=== PATIENT | female | born 1965 | race Caucasian/White ===

== ENCOUNTER 2022-04-04 18:40 | Emergency (ER) | payer SELFPAY ==
[~2022-04-04] VITALS: Ht 165.1 cm; Wt 62.0 kg
[2022-04-04 18:45] VITALS: BP 169/90
[2022-04-04] MEDS ORDERED: IBUPROFEN 600MG TABLET PO ONE (20:45)
== END 2022-04-04 23:49 | disposition home or self-care (01) ==
LOC: ER 18:40
DX: M25.561 Pain in right knee (principal); M25.562 Pain in left knee; M25.552 Pain in left hip; V03.19XA Pedestrian with other conveyance injured in collision with car, pick-up truck or van in traffic accident, initial encounter; Y93.89 Activity, other specified; Y92.89 Other specified places as the place of occurrence of the external cause; Y99.8 Other external cause status
CPT/HCPCS: 71045; 73560; 73590; 73600; 81025; 99284

== ENCOUNTER 2022-07-02 16:49 | Emergency (ER) | payer SELFPAY ==
[~2022-07-02] VITALS: Ht 160 cm; Wt 45.0 kg
[2022-07-02 18:00] VITALS: BP 122/75
[2022-07-02] MEDS ORDERED: LIDOCAINE 5% PATCH TOP SCH (18:00)
[2022-07-02] MEDS ORDERED: ACETAMINOPHEN 325MG TABLET PO ONE (18:00)
[2022-07-02] MEDS ORDERED: ACET-2708 MT (19:23)
== END 2022-07-02 20:36 | disposition home or self-care (01) ==
LOC: ER 16:49
DX: S80.02XA Contusion of left knee, initial encounter (principal); V49.9XXA Car occupant (driver) (passenger) injured in unspecified traffic accident, initial encounter; Y93.9 Activity, unspecified; Y92.410 Unspecified street and highway as the place of occurrence of the external cause
CPT/HCPCS: 73562; 93971; 99284; Z7610